=== PATIENT | male | born 1965 | race Caucasian/White ===

== ENCOUNTER → 2022-06-25 14:53 | Outpatient (CLI) | payer BC, SELFPAY ==
--- NOTE | 2022-06-25 15:08 | ECG_ITS ---
APPROVED REPORT Exam: Resting ECG HR:91 bpm ECG Measurements Heart Rate 91 AXES MS 160 P 56 QRSd 96 QRS 93 QT 344 T -5 QTc 393 Conclusion SINUS RHYTHM BORDERLINE RIGHT AXIS DEVIATION [QRS AXIS > 90] POSSIBLE INFERIOR MYOCARDIAL INFARCTION , OF INDETERMINATE AGE [30 ms Q WAVE IN II/aVF] ABNORMAL ECG UNCONFIRMED REPORT Electronically signed by : Toni Queen MD 06/25/2022 20:15:26
[2022-06-25 15:45] LABS: Basophils # 0.1 K/mm3 (0-0.2); Basophils % 1.3 % (0.1-2.0); Eosinophils # 0.1 K/mm3 (0.0-0.4); Eosinophils % 1.7 % (0.1-12.0); Hematocrit 41.9 % (42.0-52.0); Hemoglobin 13.8 g/dL (14.1-18.0); Lymphocytes # 2.2 K/mm3 (0.7-4.5); Mean Corpuscular Hemoglobin 29.4 pg (27.0-31.2); Mean Platelet Volume 8.1 fl (7.4-10.4); Monocytes # 0.5 K/mm3 (0.1-1.0); Monocytes % 6.5 % (1.7-9.3); Neutrophils # 5.4 K/mm3 (1.8-7.8); Neutrophils % 64.6 % (37.0-80.0); Platelet Count 331 K/mm3 (142-424); Red Blood Count 4.71 M/mm3 (4.60-6.20); Red Cell Distribution Width 13.5 % (11.5-17.5); White Blood Count 8.3 K/mm3 (4.8-10.8)
[2022-06-25 16:12] LABS: Chloride 103 mmol/L (98-107)
[2022-06-25 16:13] LABS: Potassium 4.4 mmoL/L (3.5-5.1); Sodium 140 mmol/L (136-145)
[2022-06-25 16:15] LABS: Alanine Aminotransferase 23 U/L (12-78); Alkaline Phosphatase 87 U/L (38-126); Aspartate Amino Transferase 28 U/L (17-59); Bilirubin,Total 0.3 mg/dl (0.2-1.3); Blood Urea Nitrogen 15 mg/dl (9-20); Estimated Glomerular Filt Rate 77 ml/min (>60); GFR (African American) 93 ML/MIN (>60)
[2022-06-25 16:16] LABS: Calcium 9.4 mg/dl (8.4-10.2); Glucose 95 mg/dl (74-100); Total Protein,Serum 6.6 g/dl (6.3-8.2)
[2022-06-25 17:21] LABS: Anion Gap 11.4 mEq/L (5-15); Carbon Dioxide 30 mmol/L (22.0-30.0)
[2022-06-25 17:23] LABS: Albumin Level 4.1 g/dl (3.5-5.0); Albumin/Globulin Ratio 1.6 (1.1-1.8); Globulin 2.5 g/dL (1.3-3.2)
== END ==
PROVIDERS: PCP Emergency Medicine; Visit Provider Emergency Medicine
DX: Z01.818 Encounter for other preprocedural examination (principal)
CPT/HCPCS: 36415; 80053; 85025; 93005

== ENCOUNTER → 2022-07-09 13:59 | Outpatient (CLI) | payer BC, SELFPAY ==
[2022-07-09 15:21] LABS: Basophils # 0.1 K/mm3 (0-0.2); Basophils % 1.1 % (0.1-2.0); Eosinophils # 0.2 K/mm3 (0.0-0.4); Eosinophils % 2.1 % (0.1-12.0); Hematocrit 43.7 % (42.0-52.0); Hemoglobin 14.3 g/dL (14.1-18.0); Lymphocytes # 1.9 K/mm3 (0.7-4.5); Lymphocytes % 25.9 % (10-50); Mean Corpuscular HGB Conc 32.7 g/dL (31.8-35.4); Mean Corpuscular Hemoglobin 29.8 pg (27.0-31.2); Mean Corpuscular Volume 91.1 fl (80-94); Mean Platelet Volume 9.8 fl (7.4-10.4); Monocytes # 0.4 K/mm3 (0.1-1.0); Monocytes % 5.5 % (1.7-9.3); Neutrophils # 4.8 K/mm3 (1.8-7.8); Neutrophils % 65.3 % (37.0-80.0); Platelet Count 399 K/mm3 (142-424); Red Cell Distribution Width 13.5 % (11.5-17.5); White Blood Count 7.4 K/mm3 (4.8-10.8)
[2022-07-09 15:49] LABS: Alanine Aminotransferase 20 U/L (12-78); Albumin Level 4.2 g/dl (3.5-5.0); Alkaline Phosphatase 104 U/L (38-126); Anion Gap 12.3 mEq/L (5-15); Aspartate Amino Transferase 27 U/L (17-59); Bilirubin,Unconjugated 0.1 mg/dL (0.0-1.1); Blood Urea Nitrogen 11 mg/dl (9-20); Calcium 9.3 mg/dl (8.4-10.2); Carbon Dioxide 28 mmol/L (22.0-30.0); Chloride 103 mmol/L (98-107); Chol/HDL Ratio 5.3 (1-3.5); Cholesterol 175 mg/dl (140-200); Estimated Glomerular Filt Rate 87 ml/min (>60); GFR (African American) 105 ML/MIN (>60); Glucose 110 mg/dl (74-100); HDL Cholesterol 33 mg/dl (40-60); Potassium 4.3 mmoL/L (3.5-5.1); Sodium 139 mmol/L (136-145); Total Protein,Serum 6.7 g/dl (6.3-8.2); Triglycerides 134 mg/dl (30-150); VLDL Cholesterol 27 mg/dL (0-40)
[2022-07-09 15:56] LABS: Bilirubin,Indirect 0.1 mg/dL (0.0-0.9); Bilirubin,Total 0.1 mg/dl (0.2-1.3)
[2022-07-09 16:00] LABS: Direct LDL Cholesterol 113.89 mg/dL (100-129)
[2022-07-09 16:09] LABS: Free T4 (Free Thyroxine) 0.86 ng/dl (0.78-2.19)
[2022-07-09 16:23] LABS: Thyroid Stimulating Hormone 1.24 uIU/mL (0.465-4.68)
== END ==
PROVIDERS: PCP Emergency Medicine; Visit Provider Nurse Practitioner
DX: R06.09 Other forms of dyspnea; I11.9 Hypertensive heart disease without heart failure; R94.31 Abnormal electrocardiogram [ECG] [EKG]; E11.9 Type 2 diabetes mellitus without complications; I63.9 Cerebral infarction, unspecified; E66.9 Obesity, unspecified; Z68.31 Body mass index [BMI] 31.0-31.9, adult; Z72.0 Tobacco use
CPT/HCPCS: 36415; 80048; 80061; 80076; 84439; 84443; 85025

== ENCOUNTER → 2022-08-03 06:35 | Outpatient (CLI) | payer BC, SELFPAY ==
--- NOTE | 2022-08-03 06:35 | CA_ITS ---
APPROVED REPORT EXAM: Comprehensive 2D, Doppler, and color-flow Echocardiogram Residential Door Unit Installer: Merari Soto, RCS, RVS Ht: 5 ft 10 in Wt: 217lbs BSA: 2.16 BP: 154/86 mmHg Indications: abn ekg, SOA, Pre-op clearance, Smoker 2D Dimensions IVSd 0.91 cm LVEF (Visual) 72.80 % PWd 0.86 cm LA Volume 28.50 mL LVDd 5.42 cm LA Volume Index 13.20 mL/m2 (M/F) 16-34 LVDs 3.13 cm Aortic Root 3.36 cm Left Atrium 3.94 cm LVOT 2.11 cm (M/F) 1.5-2.5 M-Mode Dimensions RVDd 3.45 cm (0.9-2.6) LA Diam 4.08 cm (1.9-4.0) LVDd 4.57 cm (3.5-5.7) Ao Diam 3.51 cm (2.0-3.7) LVDs 3.13 cm (3.5-5.7) IVSd 0.76 cm (0.6-1.1) PWd 0.84 cm (0.6-1.1) EF (Teich) 59.50% EPSs 0.28 cm FS 31.50% EDV (Teich) 95.90 mL TAPSE 2.78 (<1.7) ESV (Teich) 38.80 mL LV Diastology E Decel Time 283.00 (160-240 msec) E/A Ratio 0.86 MED E' 6.80 (< 7 cm/sec) MED A' 11.00 cm/s E'/MED E' Ratio 10.88 (>14) LAT E' 6.60 (<10 cm/sec) LAT A' 10.50 cm/s E/LAT E' Ratio 11.21 (>14) Aortic Valve LVOT Max 151.00 (70-110 cm/s) LVOT VTI 31.42 cm AoV Peak Ruben. 151.00 (50-130 cm/s) AO Peak GR. 9.10 mmHg AO Mean GR. 4.60 (<5 mmHg) AO VTI 29.60 (18-25 cm) GARTH (VTI) 3.71 (2.5-4.5 cm2) Mitral Valve MV A Velocity 86.00 (40-130 cm/s) E/A Ratio 0.86 MV Decel. Time 283.00 (160-240 ms) MV PHT 83.00 ms Pulmonary Valve PV Peak Velocity 115.00 (50-150 cm/s) Tricuspid Valve TR P. Velocity 161.00 cm/s Left Ventricle Left atrium is normal size, left ventricle is normal size, estimated ejection fraction 55% with no regional wall motion abnormality, Doppler evidence of impaired LV relaxation seen. Right Ventricle Right atrium and right ventricle are normal size and contractility. Aortic Valve Aortic valve is minimally thickened and fibrosed there is no aortic stenosis or aortic insufficiency. Mitral Valve Mitral valve is grossly normal, there is trace mitral regurgitation. Tricuspid Valve Tricuspid grossly normal, there is trace tricuspid regurgitation, tricuspid regurgitation jet velocity is inadequate for calculation of the right ventricular systolic pressure. Pulmonic Valve Pulmonic valve is poorly visualized. Great Vessels Aortic root is normal size. Inferior vena cava is poorly visualized. Pericardium No significant pericardial effusion noted. Conclusion 1. Normal left ventricular size, estimated ejection fraction 55% with no regional wall motion abnormality, Doppler evidence of impaired LV relaxation seen. 2. Trace mitral and tricuspid regurgitation. 3. No significant pericardial effusion noted. 4. Inferior vena cava is poorly visualized. Electronically signed by : Marcial Sarkar MD 08/04/2022 06:10:04
--- NOTE | 2022-08-03 06:35 | CA_ITS ---
APPROVED REPORT Exam: Pharmacologic Technologist: Lila Shea Ht: 5 ft 10 in Wt: 217 lbs BSA: 2.16 m2 HR: 75 bpm BP: 142/94 mmHg Indications: Shortness of Air, Abnormal EKG Medical History Medications: Moxifloxacin,,,,, Stress Test Details Test: LEXISCAN HR Resting HR: 82 bpm Max Heart Rate (APMHR): 163.042237 bpm Max HR Achieved: 110 bpm Target HR (85% APMHR): 138.955386 bpm % of APMHR: 67.48 Recovery HR: 83 bpm BP Resting BP: 142.0/94.0 mmHg Max BP: 191.0/98.0 mmHg Recovery BP: 135.0/96.0 mmHg ECG Resting ECG: Normal sinus rhythm, NSSTTW abnormalities inferiorly Clinical Reason for Termination: Completed Protocol Exercise duration: 04:00 min Highest Stage Achieved: Stress ECG Conclusion Non-diagnostic lexiscan stress test. Patient received the infusion per protocol without chest pain. ST segment changes or arrhythmias. See the nuclear report for further information. Test Summary REST . . . . . . . Resting REST 05:11 . . 82 . 142/ 94 . . Stage 1 . . . . . . . Myoview Injected Stage 1 01:00 . . 107 . . . . Stage 2 01:00 . . 99 . 191/ 98 . . Stage 3 01:00 . . 92 . 159/ 89 . . Stage 4 01:00 . . 89 . 154/ 92 . Stop exercise at 04:00 RECOVERY 01:00 . . 88 . . . . RECOVERY 02:00 . . 83 . . . . RECOVERY 03:00 . . 83 . 135/ 96 . . RECOVERY 03:01 . . 83 . 135/ 96 . . Electronically signed by : Marcial Sarkar MD 08/03/2022 18:03:05
--- NOTE | 2022-08-03 06:35 | NM_ITS ---
APPROVED REPORT Exam: Nuclear Stress Test Indication: SOB, Abnormal EKG, Fatigue, HTN, Tobacco use Patient Location: Outpatient Stress Tech: Lila Shea CO Tech:Kimberlee Mcgarry, ARRT, RT (R)(N) Ht: 5 ft 10 in Wt: 220 lbs HR: 82 bpm BP: 142/94 mmHg BSA: 2.17 m2 BMI: 31.5 History: SOB, Abnormal EKG, Fatigue, HTN, Tobacco use Procedure: Patient received a 0.4 mg of intravenous Lexiscan, resting heart rate 82 bpm, resting blood pressure 142/94 mmHg, with Lexiscan maximum heart rate achived was 110 bpm which is Less than 85 % of the maximum predicted heart rate and blood pressure was 191/98 mmHg. With Lexiscan, patient denied any complaint of chest pain. Electrocardiogram Resting electrocardiogram shows sinus rhythm nonspecific ST-T changes, with Lexiscan there is less than 1.[address] segment depression noted from the baseline EKG. The EKG portion of the Lexiscan is nondiagnostic. Cardiac Stress and Resting SPECT Images: Cardiac Stress and Resting SPECT images were obtained using technetium 99m Myoview 29.7 mCi stress and 10.23 mCi at rest. Gated SPECT for analysis of segmental wall motion and calculation of the ejection fraction also done. Prone images were also obtained. Cardiac prone images show uniform myocardial activity without segmental perfusion abnormality, computer derived ejection fraction is 64% with no regional wall motion abnormality, right ventricle is normal size and contractility. Conclusion: 1. The EKG portion of the Lexiscan is nondiagnostic. 2. No scintigraphic evidence of reversible ischemia seen, computer derived ejection fraction is 64% with no regional wall motion abnormality, right ventricle is normal size and contractility. 3. Normal Lexiscan Myoview study. Electronically signed by : Marcial Sarkar MD 08/03/2022 18:05:09
--- NOTE | 2022-08-03 09:22 | HMH.ITSHM ---
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 []MOXIFLOXACIN
== END ==
PROVIDERS: PCP Emergency Medicine; Visit Provider Nurse Practitioner
DX: R06.09 Other forms of dyspnea (principal); R94.31 Abnormal electrocardiogram [ECG] [EKG]; E66.9 Obesity, unspecified; Z68.31 Body mass index [BMI] 31.0-31.9, adult; Z72.0 Tobacco use
CPT/HCPCS: 78452; 93017; 93306; A9502; J2785

== ENCOUNTER 2024-04-02 12:37 | Emergency (ER) | payer BC, SELFPAY ==
[2024-04-02 13:20] VITALS: BP 154/85; PULSE 111; RESP 20; TEMP 36.8; O2SAT 99; BMI 30.5
--- NOTE | 2024-04-02 13:37 | ED_ITS ---
Discharge Plan Disposition Patient Disposition: Home, Self-Care Condition: Good Prescriptions Prescriptions: New clindamycin HCl 300 mg capsule 300 mg PO TID Qty: 30 0RF No Action moxifloxacin 0.5 % drops 1 drp Eye-Right QID Patient Comments: INSTILL 1 DROP TO AFFECTED EYE 4 TIMES DAILY, START 2 DAYS PRIOR TO SURGERY Referrals Follow up/Referrals: Provider,Referral, MD [Primary Care Provider] - See instructions Activity Restrictions/Add. Instructions Additional Instructions/Restrictions: Use dental balls as prescribed Over the counter Motrin and/or Tyenol for pain Take antibitoics as prescribed Follow up with Dentist as soon as possible Warm salt water rinses may help with discomfort Clinical Impressions Clinical Impression: Dental abscess Instructions Patient Instructions: Tooth Abscess, Clindamycin Print Language Print Language: Pashto Discharge ED Provider: Stacy Myrick [facility] General Stated complaint: tooth pain Time Seen by Provider: 04/02/24 13:37 History of Present Illness Provider Complaint: Patient states that he has several broken and decaying teeth on his left upper gum area States he has appointment with dentist next week but last night started with swelling in his left jaw area and today it was worse so he came in to get checked Related Data Home Medications ?Medication ?Instructions ?Recorded ?Confirmed moxifloxacin 0.5 % eye drops 1 drp Eye-Right QID 07/09/22 07/09/22 Previous Rx's ?Medication ?Instructions ?Recorded clindamycin HCl 300 mg capsule 300 mg PO TID #30 caps 04/02/24 Allergies Allergy/AdvReac Type Severity Reaction Status Date / Time From Rocephin Allergy Intermediate I-HIVES Uncoded 07/09/22 13:32 [facility] Disclaimer: The information contained in this section may have been updated after the patient was seen, as this information can be updated by other users. Medical History Cataracts, bilateral Surgical History History of placement of ear tubes Hx of appendectomy Social History Smoking Status: Current every day smoker quit status: not considering quitting alcohol intake: current alcohol intake frequency: a few times a month substance use type: marijuana current occupational status: employed Travel in the last 8 weeks: None ROS Obtained: Yes All systems reviewed & no additional complaints except as documented and Yes Systems reviewed as appropriate & no additional complaints except as documented Constitutional Constitutional: Reports system reviewed and no additional complaints, except as documented and Reports as per HPI Eyes Eyes: Reports system reviewed and no additional complaints, except as documented and Reports as per HPI ENT Ears, Nose, Mouth, and Throat: Reports system reviewed and no additional complaints, except as documented, Reports as per HPI and Reports dental pain Cardiovascular Cardiovascular: Reports system reviewed and no additional complaints, except as documented and Reports as per HPI Respiratory Respiratory: Reports system reviewed and no additional complaints, except as documented and Reports as per HPI Gastrointestinal Gastrointestingal: Reports system reviewed and no additional complaints, except as documented and as per HPI Physical Exam General General appearance: alert and in no apparent distress ENT ENT exam: Present mucous membranes moist Expanded ENT Exam Teeth exam: Present dental caries, fractured tooth #, dental tenderness #, gingival swelling and other (swelling in left jaw area) Respiratory Respiratory exam: Present normal lung sounds bilaterally; Absent respiratory distress or wheezes Cardiovascular Cardiovascular exam: Present regular rate, normal rhythm and normal heart sounds Neurological Exam Neurological exam: Present alert, oriented X3 and normal gait Medical Decision Making Chidi Inquiry Pt receiving controlled substance: No Chidi was queried for this patient: No
[2024-04-02 13:46] VITALS: BP 154/85; PULSE 111; RESP 20; TEMP 36.8; O2SAT 99
[2024-04-02] MEDS: LIDOCAINE 2% VISCOUS SOL 15ML UDC 15 ML PO (13:46)
[2024-04-02] MEDS: TETRACAINE/BENZOCAINE/BUTAMBEN 56 GM SPRAY TP (13:46)
== END 2024-04-02 13:49 | disposition home or self-care (01) ==
PROVIDERS: Emergency Provider Nurse Practitioner
DX: K04.7 Periapical abscess without sinus (principal)
CPT/HCPCS: 99204; 99212; G0463